=== PATIENT | female | born 1985 | race Two or more races ===

== ENCOUNTER 2024-06-05 19:59 | Inpatient (IN) | payer OTHER ==
[2024-06-05 20:34] VITALS: BMI 29.7
[2024-06-05] MEDS ORDERED: ONDANSETRON *ODT* 4 MG TABLET ONE (21:14)
[2024-06-05] MEDS: ONDANSETRON *ODT* 4 MG TABLET SL PRN (21:20)
[2024-06-05] MEDS: LORazepam 2 MG/ML SDV VIAL IM STA (21:20)
[2024-06-05] MEDS ORDERED: MAG HYDROX/AL HYDROX/SIMETH 30 ML UNIT-DOSE CUP PO PRN (21:32)
[2024-06-05] MEDS ORDERED: BENZOCAINE/MENTHOL (CHLORASEPTIC ) LOZENGE MM PRN (21:32)
[2024-06-05] MEDS ORDERED: chlordiazePOXIDE HCL 25 MG CAPSULE PO PRN (21:32)
[2024-06-05] MEDS ORDERED: NALOXONE (NARCAN) HCL 4 MG/0.1 ML SPRAY NS PRN (21:32)
[2024-06-05] MEDS ORDERED: BENZONATATE 200 MG CAPSULE PO PRN (21:32)
[2024-06-05] MEDS ORDERED: guaiFENesin 600 MG TABLET.ER (FP) PO PRN (21:32)
[2024-06-05] MEDS ORDERED: NALOXONE HCL 0.4 MG/ML VIAL IM PRN (21:32)
[2024-06-05] MEDS ORDERED: POLYETHYLENE GLYCOL (HEALTHYLAX) 3350 17 GM PACKET PO PRN (21:32)
[2024-06-05] MEDS ORDERED: hydrOXYzine PAMOATE 25 MG CAPSULE (FP) PO PRN (21:32)
[2024-06-05] MEDS ORDERED: IBUPROFEN 400 MG TABLET (FP) PO PRN (21:32)
[2024-06-05] MEDS ORDERED: MAGNESIUM HYDROX 2400MG/30ML ORAL SUSPENSION 30 ML CUP PO PRN (21:32)
[2024-06-05] MEDS: MELATONIN 5 MG TABLETS PO SCH (22:32)
[2024-06-05] MEDS: THIAMINE 100 MG TABLET PO SCH (22:32)
[2024-06-05] MEDS: METHOCARBAMOL 500 MG TABLET PO PRN (23:33)
[2024-06-05] MEDS: chlordiazePOXIDE HCL 25 MG CAPSULE PO SCH (23:33)
[2024-06-05] MEDS: TRIMETHOBENZAMIDE HCL 200MG/2ML INJ IM ONE (23:37)
[2024-06-06] MEDS: ACETAMINOPHEN 325 MG TABLET (FP) PO PRN (01:29)
[2024-06-06] MEDS: DICYCLOMINE HCL 10 MG CAPSULE PO PRN (01:31)
[2024-06-06] MEDS: cloNIDine HCL 0.1 MG TABLET PO ONE (01:37)
[2024-06-06] MEDS: methaDONE HCL 10 MG TABLET PO ONE (09:55)
[2024-06-06] MEDS ORDERED: cloNIDine HCL 0.1 MG TABLET PO SCH (10:00)
[2024-06-06] MEDS: cloNIDine HCL 0.1 MG TABLET PO SCH (10:00)
[2024-06-06] MEDS: SERTRALINE HCL 50 MG TABLET (FP) PO SCH (10:00)
[2024-06-06] MEDS: NICOTINE 14 MG/24 HOURS TOPICAL PATCH TD SCH (10:08)
[2024-06-06] MEDS: PRENATAL VITAMINS W/ FOLIC ACID TABLET (FP) PO SCH (10:08)
[2024-06-06] MEDS ORDERED: methaDONE HCL 10 MG TABLET PO PRN (10:50)
[2024-06-06 11:38] LABS: CHLORIDE 105 mmol/L (98-107); POTASSIUM 3.9 mmol/L (3.5-5.1); SODIUM 138 mmol/L (136-145)
[2024-06-06 11:59] LABS: BLOOD UREA NITROGEN 8.6 mg/dL (7-18)
[2024-06-06 12:01] LABS: ALBUMIN 3.1 g/dl (3.4-5.0); ANION GAP 5 mmol/L (4-13); CALCIUM 8.7 mg/dL (8.5-10.1); CO2 28 mmol/L (21-32); GLUCOSE,RANDOM 100 mg/dL (74-106); HEMATOCRIT 36.5 % (32.4-45.2); HEMOGLOBIN 12.1 GM/dL (10.7-15.3); MCH 31.1 pg (25.7-33.7); MCHC 33.3 g/dl (32.0-36.0); MEAN CELL VOLUME 93.2 fl (80-96); MEAN PLT VOLUME 9.7 fl (7.5-11.1); PLATELET COUNT 211 10^3/uL (134-434); RBC 3.91 M/mm3 (3.60-5.2); RDW 15.3 % (11.6-15.6); WHITE BLOOD COUNT 7.7 K/mm3 (4.0-10.0)
[2024-06-06 12:04] LABS: SGPT/ALT 34 U/L (13-61)
[2024-06-06 12:05] LABS: CREATININE 0.7 mg/dL (0.55-1.3); SGOT/AST 22 U/L (15-37)
[2024-06-06 12:06] LABS: BILIRUBIN,TOTAL 0.3 mg/dL (0.2-1); TOT PROT 6.2 g/dl (6.4-8.2)
[2024-06-06 12:07] LABS: ALK PHOS 132 U/L (45-117)
[2024-06-06] MEDS: GABAPENTIN 300 MG CAPSULE PO SCH (13:48)
[2024-06-06] MEDS: SUVOREXANT 10 MG TABLET PO PRN (22:42)
[2024-06-06] MEDS: LOPERAMIDE HCL 2 MG CAPSULE PO PRN (22:59)
[2024-06-07] MEDS: chlordiazePOXIDE HCL 25 MG CAPSULE PO SCH (05:41)
[2024-06-07] MEDS: METHOCARBAMOL 500 MG TABLET PO ONE (09:36)
[2024-06-07] MEDS: methaDONE 40 MG, methaDONE 10 MG PO ONE (09:37)
[2024-06-07] MEDS: DIPHENOXYLATE 2.5/ATROPINE.025 1 COMBO TABLET PO ONE (09:42)
[2024-06-07] MEDS: BISMUTH SUBSALICYLATE 524 MG/30 ML PO PRN (13:38)
[2024-06-07] MEDS: SUVOREXANT 15 MG TABLET PO PRN (22:21)
[2024-06-08] MEDS ORDERED: cloNIDine HCL 0.1 MG TABLET PO PRN
[2024-06-08] MEDS: chlordiazePOXIDE HCL 10 MG CAPSULE PO SCH (05:50)
[2024-06-08] MEDS: methaDONE 40 MG, methaDONE 20 MG PO ONE (09:15)
[2024-06-08] MEDS: IBUPROFEN 600 MG TABLET (FP) PO PRN (10:31)
[2024-06-08] MEDS: chlordiazePOXIDE HCL 10 MG CAPSULE PO PRN (14:31)
[2024-06-08] MEDS: NICOTINE POLACRILEX 4 MG GUM BUC PRN (14:39)
[2024-06-08] MEDS: traZODone HCL 50 MG TABLET (FP) PO PRN (22:27)
[2024-06-08] MEDS: SUVOREXANT 20 MG TABLET PO PRN (22:28)
[2024-06-09] MEDS: chlordiazePOXIDE HCL 10 MG CAPSULE PO SCH (05:47)
[2024-06-09] MEDS: methaDONE 40 MG, methaDONE 30 MG PO ONE (09:24)
[2024-06-09] MEDS: NICOTINE 21 MG/24 HOURS TOPICAL PATCH TD ONE (09:30)
[2024-06-09] MEDS: NICOTINE 14 MG/24 HOURS TOPICAL PATCH TD SCH (10:05)
[2024-06-09] MEDS: METHOCARBAMOL 500 MG TABLET PO PRN (10:45)
[2024-06-10] MEDS: chlordiazePOXIDE HCL 10 MG CAPSULE PO ONE (05:22)
[2024-06-10] MEDS: methaDONE HCL 40 MG DISPERSABLE TABLET PO ONE (09:21)
[2024-06-10] MEDS: chlordiazePOXIDE HCL 10 MG CAPSULE PO PRN (10:15)
[2024-06-10] MEDS: levETIRAcetam 500 MG TABLET (FP) PO SCH (10:15)
[2024-06-10] MEDS ORDERED: hydrOXYzine PAMOATE 25 MG CAPSULE (FP) PO PRN (13:22)
[2024-06-11 06:17] VITALS: RESP 16
[2024-06-11] MEDS: methaDONE 80 MG, methaDONE 10 MG PO ONE (09:08)
[2024-06-11 09:34] VITALS: BP 124/60; PULSE 69; TEMP 97.7
== END 2024-06-11 10:24 | disposition home or self-care (01) | DRG 773 ==
LOC: YASAS 19:59 → Y6N 21:36 → UNDOADMIN 21:36 → Y6N 22:33
PROVIDERS: ADMIT Allergy & Immunology; ATTEND Surgery
PROC: HZ2ZZZZ Detoxification Services for Substance Abuse Treatment (ICD-10-PCS; principal; 2024-06-05)
DX: F10.230 Alcohol dependence with withdrawal, uncomplicated (principal); F10.220 Alcohol dependence with intoxication, uncomplicated; F10.282 Alcohol dependence with alcohol-induced sleep disorder; F10.280 Alcohol dependence with alcohol-induced anxiety disorder; F13.230 Sedative, hypnotic or anxiolytic dependence with withdrawal, uncomplicated; F11.20 Opioid dependence, uncomplicated; F12.20 Cannabis dependence, uncomplicated; F17.210 Nicotine dependence, cigarettes, uncomplicated; F41.9 Anxiety disorder, unspecified; F31.9 Bipolar disorder, unspecified; F43.10 Post-traumatic stress disorder, unspecified; I10 Essential (primary) hypertension; J45.20 Mild intermittent asthma, uncomplicated; R01.1 Cardiac murmur, unspecified; Z85.07 Personal history of malignant neoplasm of pancreas; Z92.21 Personal history of antineoplastic chemotherapy; Z62.810 Personal history of physical and sexual abuse in childhood; Z86.69 Personal history of other diseases of the nervous system and sense organs
CPT/HCPCS: 36415; 80053; 80305; 80307; 81025; 85027; 86780; 93005; 93010; Q0162

== ENCOUNTER 2024-12-19 13:33 | Inpatient (IN) | payer OTHER ==
[2024-12-19 16:39] VITALS: BMI 28.8
[2024-12-19] MEDS ORDERED: guaiFENesin 600 MG TABLET.ER (FP) PO PRN (17:41)
[2024-12-19] MEDS ORDERED: MAG HYDROX/AL HYDROX/SIMETH 30 ML UNIT-DOSE CUP PO PRN (17:41)
[2024-12-19] MEDS ORDERED: METHOCARBAMOL 500 MG TABLET PO PRN (17:41)
[2024-12-19] MEDS ORDERED: NALOXONE (NARCAN) HCL 4 MG/0.1 ML SPRAY NS PRN (17:41)
[2024-12-19] MEDS ORDERED: POLYETHYLENE GLYCOL (HEALTHYLAX) 3350 17 GM PACKET PO PRN (17:41)
[2024-12-19] MEDS ORDERED: P-EPHED 60MG/TRIPROLIDI 2.5MG TABLET PO PRN (17:41)
[2024-12-19] MEDS ORDERED: ONDANSETRON *ODT* 4 MG TABLET SL PRN (17:41)
[2024-12-19] MEDS ORDERED: BENZOCAINE/MENTHOL (CHLORASEPTIC ) LOZENGE MM PRN (17:41)
[2024-12-19] MEDS ORDERED: DICYCLOMINE HCL 10 MG CAPSULE PO PRN (17:41)
[2024-12-19] MEDS ORDERED: NICOTINE POLACRILEX 2 MG LOZENGE BC PRN (17:41)
[2024-12-19] MEDS ORDERED: BENZONATATE 200 MG CAPSULE PO PRN (17:41)
[2024-12-19] MEDS ORDERED: LOPERAMIDE HCL 2 MG CAPSULE PO PRN (17:41)
[2024-12-19] MEDS ORDERED: diazePAM 5 MG TABLET ONE (19:16)
[2024-12-19] MEDS: diazePAM 5 MG TABLET PO PRN (19:17)
[2024-12-19] MEDS ORDERED: ALBUTEROL SO4 HFA INHALER IH PRN (19:35)
[2024-12-19] MEDS: OFLOXACIN 0.3% OPHTHALMIC SOLUTION 5 ML BOTTLE OD SCH ×2 (21:05→23:55)
[2024-12-19] MEDS: MELATONIN 5 MG TABLETS PO SCH (22:32)
[2024-12-19] MEDS: THIAMINE 100 MG TABLET PO SCH (22:32)
[2024-12-19] MEDS: APIXABAN 5 MG TABLET PO SCH (22:32)
[2024-12-19] MEDS: GABAPENTIN 300 MG CAPSULE PO SCH (22:32)
[2024-12-19] MEDS: levETIRAcetam 500 MG TABLET (FP) PO SCH (22:33)
[2024-12-19] MEDS: diazePAM 5 MG TABLET PO SCH (22:33)
[2024-12-19] MEDS: traZODone HCL 50 MG TABLET (FP) PO ONE (22:34)
[2024-12-19] MEDS: cloNIDine HCL 0.1 MG TABLET PO PRN (22:38)
[2024-12-19] MEDS: NICOTINE POLACRILEX 2 MG GUM BUC PRN (22:39)
[2024-12-20] MEDS ORDERED: methaDONE HCL 10 MG TABLET PO ONE ×2 (08:52→08:57)
[2024-12-20] MEDS ORDERED: PATIENT'S OWN MEDICATION (NON-FORMULARY) (Hydroxyzine Hcl [Hydroxyzine Hcl] 10 MG Tablet) PO PRN (09:04)
[2024-12-20] MEDS: cloNIDine HCL 0.1 MG TABLET PO SCH (10:09)
[2024-12-20] MEDS: FOLIC ACID 1 MG TABLET (FP) PO SCH (10:09)
[2024-12-20] MEDS: risperiDONE 1 MG TABLET PO SCH (10:09)
[2024-12-20] MEDS: methaDONE 40 MG, methaDONE 10 MG PO ONE (10:10)
[2024-12-20] MEDS: PRENATAL VITAMINS W/ FOLIC ACID TABLET (FP) PO SCH (10:11)
[2024-12-20] MEDS: NICOTINE 21 MG/24 HOURS TOPICAL PATCH TD SCH (11:31)
[2024-12-20 11:33] LABS: POTASSIUM 4.3 mmol/L (3.5-5.1)
[2024-12-20 11:39] LABS: ALBUMIN 3.8 g/dl (3.4-5.0); CALCIUM 9.3 mg/dL (8.5-10.1)
[2024-12-20 11:40] LABS: BLOOD UREA NITROGEN 16.6 mg/dL (7-18); HEMATOCRIT 37.5 % (32.4-45.2); MCH 28.6 pg (25.7-33.7); MEAN CELL VOLUME 89.4 fl (80-96); MEAN PLT VOLUME 9.3 fl (7.5-11.1); PLATELET COUNT 263 10^3/uL (134-434); RBC 4.19 M/mm3 (3.60-5.2); WHITE BLOOD COUNT 10.1 K/mm3 (4.0-10.0)
[2024-12-20 11:43] LABS: CREATININE 0.7 mg/dL (0.55-1.3)
[2024-12-20 11:44] LABS: BILIRUBIN,TOTAL 0.4 mg/dL (0.2-1); TOT PROT 7.4 g/dl (6.4-8.2)
[2024-12-20] MEDS: ACETAMINOPHEN 325 MG TABLET (FP) PO PRN (14:30)
[2024-12-20] MEDS: SUVOREXANT 15 MG TABLET PO PRN (22:07)
[2024-12-20] MEDS: hydrOXYzine PAMOATE 25 MG CAPSULE (FP) PO PRN (22:09)
[2024-12-21] MEDS: diazePAM 5 MG TABLET PO SCH (06:00)
[2024-12-21] MEDS ORDERED: methaDONE HCL 40 MG DISPERSABLE TABLET PO ONE (06:00)
[2024-12-21] MEDS ORDERED: methaDONE HCL 10 MG TABLET PO SCH (06:00)
[2024-12-21] MEDS: methaDONE 40 MG, methaDONE 10 MG PO SCH (06:00)
[2024-12-21] MEDS: MAGNESIUM HYDROX 2400MG/30ML ORAL SUSPENSION 30 ML CUP PO PRN (09:45)
[2024-12-22] MEDS ORDERED: methaDONE HCL 10 MG TABLET PO SCH (06:00)
[2024-12-22] MEDS: diazePAM 5 MG TABLET PO SCH (06:21)
[2024-12-22] MEDS: ACAMPROSATE CALCIUM 333 MG TABLET.DR PO SCH (22:12)
[2024-12-23] MEDS: diazePAM 5 MG TABLET PO ONE (06:17)
[2024-12-23 09:35] VITALS: RESP 18
[2024-12-23] MEDS: clonazePAM 0.5 MG ODT TABLETS SL SCH (10:40)
[2024-12-23 13:24] VITALS: BP 105/79; PULSE 80; TEMP 97.7
== END 2024-12-23 13:15 | disposition other institution (70) | DRG 774 ==
LOC: YASAS 13:33 → Y6N 18:05
PROVIDERS: ADMIT Allergy & Immunology; ATTEND Allergy & Immunology
PROC: HZ2ZZZZ Detoxification Services for Substance Abuse Treatment (ICD-10-PCS; principal; 2024-12-19)
DX: F10.230 Alcohol dependence with withdrawal, uncomplicated (principal); F14.20 Cocaine dependence, uncomplicated; F12.20 Cannabis dependence, uncomplicated; F17.210 Nicotine dependence, cigarettes, uncomplicated; F19.280 Other psychoactive substance dependence with psychoactive substance-induced anxiety disorder; F19.282 Other psychoactive substance dependence with psychoactive substance-induced sleep disorder; F31.9 Bipolar disorder, unspecified; F43.10 Post-traumatic stress disorder, unspecified; G62.9 Polyneuropathy, unspecified; H10.501 Unspecified blepharoconjunctivitis, right eye; I10 Essential (primary) hypertension; G40.909 Epilepsy, unspecified, not intractable, without status epilepticus; J45.20 Mild intermittent asthma, uncomplicated; R29.6 Repeated falls; Z86.73 Personal history of transient ischemic attack (TIA), and cerebral infarction without residual deficits; Z79.01 Long term (current) use of anticoagulants; Z62.810 Personal history of physical and sexual abuse in childhood; Z91.410 Personal history of adult physical and sexual abuse; Z99.89 Dependence on other enabling machines and devices
CPT/HCPCS: 36415; 80053; 80305; 80307; 81025; 85027; 86780; 87811; 93005; 93010

== ENCOUNTER 2024-12-23 13:32 | Inpatient (IN) | payer OTHER ==
[~2024-12-23 13:32] MED LIST: ALBUTEROL SO4 HFA INHALER IH PRN; BENZONATATE 200 MG CAPSULE PO PRN; IBUPROFEN 400 MG TABLET (FP) PO PRN; IBUPROFEN 600 MG TABLET (FP) PO PRN; LOPERAMIDE HCL 2 MG CAPSULE PO PRN; MAG HYDROX/AL HYDROX/SIMETH 30 ML UNIT-DOSE CUP PO PRN; MAGNESIUM HYDROX 2400MG/30ML ORAL SUSPENSION 30 ML CUP PO PRN; NALOXONE (NARCAN) HCL 4 MG/0.1 ML SPRAY NS PRN; POLYETHYLENE GLYCOL (HEALTHYLAX) 3350 17 GM PACKET PO PRN; guaiFENesin 600 MG TABLET.ER (FP) PO PRN
[2024-12-23] MEDS ORDERED: ACAMPROSATE CALCIUM 333 MG TABLET.DR PO SCH (14:00)
[2024-12-23] MEDS: GABAPENTIN 300 MG CAPSULE PO SCH (14:29)
[2024-12-23] MEDS: OFLOXACIN 0.3% OPHTHALMIC SOLUTION 5 ML BOTTLE OD SCH (17:35)
[2024-12-23] MEDS: NICOTINE POLACRILEX 4 MG GUM BUC PRN (18:15)
[2024-12-23] MEDS: APIXABAN 5 MG TABLET PO SCH (21:38)
[2024-12-23] MEDS: levETIRAcetam 500 MG TABLET (FP) PO SCH (21:38)
[2024-12-23] MEDS: ACAMPROSATE CALCIUM 333 MG TABLET.DR PO SCH (21:39)
[2024-12-23] MEDS: THIAMINE 100 MG TABLET PO SCH (21:39)
[2024-12-23] MEDS: MELATONIN 5 MG TABLETS PO SCH (21:39)
[2024-12-23] MEDS: SUVOREXANT 15 MG TABLET PO PRN (22:04)
[2024-12-24] MEDS: methaDONE 40 MG, methaDONE 10 MG PO SCH (05:31)
[2024-12-24] MEDS ORDERED: methaDONE HCL 10 MG TABLET PO SCH (06:00)
[2024-12-24] MEDS: ACETAMINOPHEN 325 MG TABLET (FP) PO PRN (07:29)
[2024-12-24] MEDS: NICOTINE 21 MG/24 HOURS TOPICAL PATCH TD SCH (10:43)
[2024-12-24] MEDS: clonazePAM 0.5 MG ODT TABLETS SL ONE (10:44)
[2024-12-24] MEDS: PRENATAL VITAMINS W/ FOLIC ACID TABLET (FP) PO SCH (10:45)
[2024-12-24] MEDS: risperiDONE 1 MG TABLET PO SCH (10:45)
[2024-12-24] MEDS: cloNIDine HCL 0.1 MG TABLET PO SCH (10:48)
[2024-12-24] MEDS: clonazePAM 0.5 MG ODT TABLETS SL SCH (14:22)
[2024-12-24] MEDS: NICOTINE POLACRILEX 4 MG LOZENGE BC PRN (14:24)
[2024-12-24 17:27] LABS: HIV INTERPRETATION NEGATIVE (NEGATIVE)
[2024-12-24] MEDS: SUVOREXANT 20 MG TABLET PO PRN (21:17)
[2024-12-25] MEDS: cloNIDine HCL 0.1 MG TABLET PO SCH (14:49)
[2024-12-26] MEDS: METHOCARBAMOL 500 MG TABLET PO ONE (10:46)
[2024-12-26] MEDS: METHOCARBAMOL 500 MG TABLET PO PRN (16:40)
[2024-12-26] MEDS: TRIMETHOBENZAMIDE HCL 200MG/2ML INJ IM ONE (23:07)
[2024-12-27] MEDS: AMOX TR/POT CLAV 500MG/125MG TABLETS (FP) PO SCH (16:59)
[2024-12-27] MEDS: hydrOXYzine PAMOATE 25 MG CAPSULE (FP) PO PRN (17:42)
[2024-12-27] MEDS ORDERED: cloNIDine HCL 0.1 MG TABLET PO SCH (22:00)
[2024-12-29] MEDS: BENZOCAINE 20 % GEL TUBE MM PRN (11:46)
[2024-12-30] MEDS: TRIMETHOBENZAMIDE HCL 200MG/2ML INJ IM ONE (17:47)
[2024-12-31] MEDS: traZODone HCL 50 MG TABLET (FP) PO SCH (21:07)
[2025-01-01] MEDS: BENZOCAINE/MENTHOL (CHLORASEPTIC ) LOZENGE MM PRN (07:54)
[2025-01-01] MEDS: METHOCARBAMOL 500 MG TABLET PO PRN (17:30)
[2025-01-03] MEDS: traZODone HCL 100 MG TABLET (FP) PO SCH (21:19)
[2025-01-06 07:22] VITALS: RESP 18; TEMP 97.9
[2025-01-06 10:50] VITALS: BP 106/59; PULSE 77
== END 2025-01-06 13:00 | disposition home or self-care (01) | DRG 772 ==
LOC: YASAS 13:32 → Y3NR 13:33 → Y5N 12-24 11:29
PROVIDERS: ADMIT Psychiatry & Neurology Pain Medicine; ATTEND Psychiatry & Neurology Pain Medicine
PROC: HZ42ZZZ Group Counseling for Substance Abuse Treatment, Cognitive-Behavioral (ICD-10-PCS; principal; 2024-12-23)
DX: F11.10 Opioid abuse, uncomplicated (principal); F10.20 Alcohol dependence, uncomplicated; F14.20 Cocaine dependence, uncomplicated; F17.210 Nicotine dependence, cigarettes, uncomplicated; F19.282 Other psychoactive substance dependence with psychoactive substance-induced sleep disorder; F19.280 Other psychoactive substance dependence with psychoactive substance-induced anxiety disorder; F19.24 Other psychoactive substance dependence with psychoactive substance-induced mood disorder; F41.9 Anxiety disorder, unspecified; F43.10 Post-traumatic stress disorder, unspecified; F32.A Depression, unspecified; G62.9 Polyneuropathy, unspecified; H10.9 Unspecified conjunctivitis; I10 Essential (primary) hypertension; J45.909 Unspecified asthma, uncomplicated; K02.9 Dental caries, unspecified; R56.1 Post traumatic seizures; I69.851 Hemiplegia and hemiparesis following other cerebrovascular disease affecting right dominant side; Z79.01 Long term (current) use of anticoagulants; Z99.89 Dependence on other enabling machines and devices
CPT/HCPCS: 36415; 86803; 87389

== ENCOUNTER 2025-03-06 15:33 | Inpatient (IN) | payer OTHER ==
[2025-03-06 16:25] VITALS: BMI 28.8
[2025-03-06] MEDS ORDERED: IBUPROFEN 400 MG TABLET (FP) PO PRN (16:43)
[2025-03-06] MEDS ORDERED: NALOXONE (NARCAN) HCL 4 MG/0.1 ML SPRAY NS PRN (16:43)
[2025-03-06] MEDS ORDERED: MAGNESIUM HYDROX 2400MG/30ML ORAL SUSPENSION 30 ML CUP PO PRN (16:43)
[2025-03-06] MEDS ORDERED: IBUPROFEN 600 MG TABLET (FP) PO PRN (16:43)
[2025-03-06] MEDS ORDERED: BISMUTH SUBSALICYLATE 524 MG/30 ML PO PRN (16:43)
[2025-03-06] MEDS ORDERED: ONDANSETRON *ODT* 4 MG TABLET SL PRN (16:43)
[2025-03-06] MEDS ORDERED: DICYCLOMINE HCL 10 MG CAPSULE PO PRN (16:43)
[2025-03-06] MEDS ORDERED: BENZOCAINE/MENTHOL (CHLORASEPTIC ) LOZENGE MM PRN (16:43)
[2025-03-06] MEDS ORDERED: guaiFENesin 600 MG TABLET.ER (FP) PO PRN (16:43)
[2025-03-06] MEDS ORDERED: hydrOXYzine PAMOATE 25 MG CAPSULE (FP) PO PRN (16:43)
[2025-03-06] MEDS ORDERED: LOPERAMIDE HCL 2 MG CAPSULE PO PRN (16:43)
[2025-03-06] MEDS ORDERED: BENZONATATE 200 MG CAPSULE PO PRN (16:43)
[2025-03-06] MEDS ORDERED: ALBUTEROL SO4 HFA INHALER IH PRN (18:04)
[2025-03-06] MEDS ORDERED: chlordiazePOXIDE HCL 25 MG CAPSULE ONE (18:11)
[2025-03-06] MEDS ORDERED: levETIRAcetam 500 MG TABLET (FP) PO ONE (18:12)
[2025-03-06] MEDS: levETIRAcetam 500 MG TABLET (FP) PO ONE (18:14)
[2025-03-06] MEDS: chlordiazePOXIDE HCL 25 MG CAPSULE PO SCH (18:15)
[2025-03-06] MEDS: NICOTINE POLACRILEX 2 MG GUM BUC PRN (18:54)
[2025-03-06] MEDS: APIXABAN 5 MG TABLET PO SCH (22:16)
[2025-03-06] MEDS: GABAPENTIN 300 MG CAPSULE PO SCH (22:16)
[2025-03-06] MEDS: MELATONIN 5 MG TABLETS PO SCH (22:16)
[2025-03-06] MEDS: THIAMINE 100 MG TABLET PO SCH (22:16)
[2025-03-06] MEDS: ACETAMINOPHEN 325 MG TABLET (FP) PO PRN (23:59)
[2025-03-07] MEDS: METHOCARBAMOL 500 MG TABLET PO PRN
[2025-03-07] MEDS: methaDONE HCL 10 MG TABLET PO ONE (09:06)
[2025-03-07] MEDS: amLODIPine BESYLATE 5 MG TABLET (FP) PO SCH (09:07)
[2025-03-07] MEDS: levETIRAcetam 500 MG TABLET (FP) PO SCH (09:07)
[2025-03-07] MEDS: PRENATAL VITAMINS W/ FOLIC ACID TABLET (FP) PO SCH (09:07)
[2025-03-07] MEDS: NICOTINE 21 MG/24 HOURS TOPICAL PATCH TD SCH (09:09)
[2025-03-07] MEDS: risperiDONE 1 MG TABLET PO SCH (10:22)
[2025-03-07 10:59] LABS: HEMATOCRIT 39.5 % (34.1-44.9); HEMOGLOBIN 12.6 g/dL (11.2-15.7); MCHC 31.9 g/dl (32.2-35.5); MEAN CELL VOLUME 95.2 fl (79.4-94.8); MEAN PLT VOLUME 10.7 fl (9.4-12.3); PLATELET COUNT 370 x10^3/uL (182-369); RDW 14.7 % (12.1-16.8)
[2025-03-07 11:14] LABS: CHLORIDE 100 mmol/L (98-107); POTASSIUM 4.3 mmol/L (3.5-5.1); SODIUM 144 mmol/L (136-145)
[2025-03-07 11:48] LABS: SGOT/AST 15 U/L (15-37); SGPT/ALT 20 U/L (13-61)
[2025-03-07 11:49] LABS: BILIRUBIN,TOTAL 0.7 mg/dL (0.2-1); BLOOD UREA NITROGEN 18.4 mg/dL (7-18); CREATININE 0.8 mg/dL (0.55-1.3); TOT PROT 7.3 g/dl (6.4-8.2)
[2025-03-07 11:51] LABS: ALBUMIN 3.7 g/dl (3.4-5.0); ALK PHOS 127 U/L (45-117); ANION GAP 18 mmol/L (4-13); CALCIUM 9.8 mg/dL (8.5-10.1); CO2 25 mmol/L (21-32); GLUCOSE,RANDOM 131 mg/dL (74-106)
[2025-03-07] MEDS: MAG HYDROX/AL HYDROX/SIMETH 30 ML UNIT-DOSE CUP PO PRN (13:43)
[2025-03-07] MEDS: NICOTINE POLACRILEX 4 MG GUM BUC PRN (13:44)
[2025-03-07] MEDS: chlordiazePOXIDE HCL 25 MG CAPSULE PO PRN (19:35)
[2025-03-07] MEDS: traZODone HCL 100 MG TABLET (FP) PO SCH (22:05)
[2025-03-08] MEDS: methaDONE HCL 40 MG DISPERSABLE TABLET PO ONE (05:34)
[2025-03-08] MEDS: chlordiazePOXIDE HCL 25 MG CAPSULE PO SCH (05:35)
[2025-03-08] MEDS: QUEtiapine FUMARATE 100 MG TABLET (FP) PO SCH (22:06)
[2025-03-09] MEDS ORDERED: chlordiazePOXIDE HCL 10 MG CAPSULE PO PRN
[2025-03-09] MEDS: chlordiazePOXIDE HCL 10 MG CAPSULE PO SCH (05:31)
[2025-03-09] MEDS: methaDONE 40 MG, methaDONE 10 MG PO SCH (05:32)
[2025-03-09] MEDS ORDERED: methaDONE HCL 10 MG TABLET PO SCH (06:00)
[2025-03-09] MEDS: QUEtiapine FUMARATE 50 MG TABLET PO SCH (22:05)
[2025-03-10] MEDS: chlordiazePOXIDE HCL 10 MG CAPSULE PO SCH (05:52)
[2025-03-10] MEDS: POLYETHYLENE GLYCOL (HEALTHYLAX) 3350 17 GM PACKET PO PRN (06:01)
[2025-03-10] MEDS ORDERED: HYDROCORTISONE 1% TOPICAL CREAM 30 GM TUBE TP PRN (13:42)
[2025-03-10] MEDS ORDERED: METHOCARBAMOL 500 MG TABLET PO PRN (13:48)
[2025-03-10] MEDS: METHOCARBAMOL 500 MG TABLET PO PRN (20:18)
[2025-03-11] MEDS: chlordiazePOXIDE HCL 10 MG CAPSULE PO ONE (05:38)
[2025-03-11 08:51] VITALS: BP 111/61; PULSE 83; RESP 16; TEMP 97
== END 2025-03-11 09:40 | disposition home or self-care (01) | DRG 773 ==
LOC: YASAS 15:33 → Y3N 17:57
PROVIDERS: ADMIT Allergy & Immunology; ATTEND Allergy & Immunology
PROC: HZ2ZZZZ Detoxification Services for Substance Abuse Treatment (ICD-10-PCS; principal; 2025-03-06)
DX: F11.23 Opioid dependence with withdrawal (principal); F10.230 Alcohol dependence with withdrawal, uncomplicated; F14.20 Cocaine dependence, uncomplicated; F13.20 Sedative, hypnotic or anxiolytic dependence, uncomplicated; F17.210 Nicotine dependence, cigarettes, uncomplicated; F19.282 Other psychoactive substance dependence with psychoactive substance-induced sleep disorder; F19.280 Other psychoactive substance dependence with psychoactive substance-induced anxiety disorder; F19.24 Other psychoactive substance dependence with psychoactive substance-induced mood disorder; F31.9 Bipolar disorder, unspecified; F43.10 Post-traumatic stress disorder, unspecified; I10 Essential (primary) hypertension; J45.909 Unspecified asthma, uncomplicated; R56.1 Post traumatic seizures; R29.6 Repeated falls; Z86.73 Personal history of transient ischemic attack (TIA), and cerebral infarction without residual deficits; Z99.89 Dependence on other enabling machines and devices; Z62.810 Personal history of physical and sexual abuse in childhood; Z63.8 Other specified problems related to primary support group
CPT/HCPCS: 36415; 80053; 80305; 80307; 81025; 85027; 86780; 93005; 93010